=== PATIENT | male | born 1995 | race Caucasian/White ===

== ENCOUNTER 2020-01-04 21:01 | Emergency (ER) | payer OTHER ==
[~2020-01-04] VITALS: Ht 172.7 cm; Wt 74.8 kg
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
[2020-01-04 21:36] VITALS: BP 131/74
[2020-01-04 22:13] LABS: HEMATOCRIT 45.8 % (39.0-53.0); HEMOGLOBIN 15.6 g/dL (13.0-17.5); RED BLOOD COUNT 5.31 x10^6/uL (4.30-5.70); RED CELL DISTRIBUTION WIDTH 13.2 % (11.5-14.5); WHITE BLOOD COUNT 15.7 x10^3/uL (4.0-11.0)
[2020-01-04 22:19] LABS: AMPHETAMINE/METHAMPHETAMINE NEG (NEG); BARBITURATES NEG (NEG); BENZODIAZEPINES NEG (NEG); CANNABINOIDS NEG (NEG); COCAINE NEG (NEG); METHADONE NEG (NEG); OPIATES NEG (NEG); PHENCYCLIDINE NEG (NEG)
[2020-01-04 22:20] LABS: CREATININE 1.4 mg/dL (0.7-1.3); GFR 61.3; POTASSIUM 3.5 mmol/L (3.5-5.1)
[2020-01-04] MEDS: KETOROLAC 60 MG/2 ML VIAL. IM ONE (22:27)
[2020-01-04] MEDS: DIPH,PERTUSS(ACELL),TET VAC/PF 0.5 ML SYRINGE. VAX IM ONE (22:28)
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
[2020-01-04 22:48] LABS: BILIRUBIN,URINE NEG (NEG); CLARITY,URINE CLEAR; COLOR,URINE YELLOW; GLUCOSE,URINE NEG (NEG); NITRITE,URINE NEG (NEG); RBC,URINE OCC /HPF (0-2); UROBILINOGEN,URINE 0.2 mg/dL (0.2 mg/dL)
[2020-01-04 22:49] LABS: BACTERIA,URINE 0 /HPF (0-FEW); SQUAMOUS EPITHELIAL CELL,UR OCC /LPF; WBC,URINE OCC /HPF (0-4)
[2020-01-04] MEDS ORDERED: HYDR-1179 PO (23:45)
[2020-01-04] MEDS ORDERED: CYCL-331 PO (23:47)
== END 2020-01-04 23:59 | disposition home or self-care (01) ==
LOC: ER 21:01
DX: S63.502A Unspecified sprain of left wrist, initial encounter (principal); S83.91XA Sprain of unspecified site of right knee, initial encounter; V29.9XXA Motorcycle rider (driver) (passenger) injured in unspecified traffic accident, initial encounter; Y93.I9 Activity, other involving external motion; Y92.488 Other paved roadways as the place of occurrence of the external cause; Y99.8 Other external cause status
CPT/HCPCS: 29125; 29505; 36415; 70450; 71046; 72125; 73110; 73564; 80048; 80307; 81001; 85027; 90471; 90715; 96372; 99285; J1885